=== PATIENT | male | born 1950 | race Caucasian/White ===

== ENCOUNTER → 2017-05-06 | Outpatient (CLI) | payer BC ==
--- NOTE | 2017-05-06 17:56 | PCVCIMAG ---
APPROVED REPORT Exam: Stress Echocardiogram Indication: CAD s/p PCI Patient Location: Echo lab Stress Nurse: Robyn Russell RN Room #: 2 Status: routine Ht: 5 ft 11 in HR: 71 bpm BP: 102/52 mmHg Rhythm: Bradycardia Medical History Medical History: CAD s/p stent Cardiac Risk Factors: HTN, Hyperlipidemia Previous Cardiac Procedures: PCI Pretest Chest Pain Characteristics: No chest pain Exercise History: Physically active Procedure The patient underwent an Exercise Stress Test using the Dequan Protocol. Blood pressure, heart rate, and EKG were monitored. An Echocardiogram was performed by technician plant and maintenance in four stages in quad fashion. At peak stress, four selected images were obtained and placed side by side with resting images for comparison. Stress Test Details Stress Test: Exercise stress testing was performed using a Dequan protocol. HR Resting HR: 71 bpmMax Heart Rate (APMHR): 152 bpm Max HR Achieved: 160 bpmTarget HR (85% APMHR): 129 bpm % of APMHR: 105 Recovery HR: 92 bpm HR response to stress: Normal HR response to stress BP Resting BP: 102/52 mmHg Max BP: 148/68 mmHg Recovery BP: 116/78 mmHg ECG Resting ECG: Sinus Bradycardia Stress ECG: Sinus Rhythm ST Change: Non-ischemic, Upsloping ST depression Arrhythmia: Rare PVCs and couplet PVCs Recovery ECG: Sinus Rhythm, normal EKG Recovery ST Change: Non-ischemic Recovery Arrhythmia: None Clinical Reason for Termination: Maximal effort Stress Symptoms: none Exercise duration: 10 min sec Highest Stage Achieved: Stage 4: 4.2 mph at 16% grade. Exercise capacity: 13.4 METs Overall Exercise Capacity for Age: Good Angina Score: None Stress ECG Conclusion The patient exercised according to the Dequan Protocol for 10:00 minutes, achieving a maximum work level of 13.4 METS. The resting heart rate of 71 bpm, stacie to a maximal level of160 bpm. This value represents 105 % of the maximal, age-predicted heart rate. The resting blood pressure of 102/52 mmHg, stacie to a maximum blood pressure of 148/68 mmHg. The exercise was stopped due to fatigue. Pre-Stress Echo The resting Echocardiogram showed normal left ventricular contractility with an estimated Ejection Fraction of about 55-60%. Normal wall motion in all segments on baseline images. Post-Stress Echo The stress Echocardiogram showed normal left ventricular contractility with an estimated Ejection Fraction of about 65-70%. Normal augmentation of wall motion in all segments on post stress images. Clinical No clinical or ECG evidence for ischemia. Conclusion Clinical Response: Non-ischemic Exercise Capacity: Superior Stress ECG Response: Non-ischemic Stress Echo Images: Non-ischemic No clinical, EKG or echocardiographic evidence for ischemia. No echocardiographic evidence for exercise induced ischemia. Normal stress echocardiogram with maximal exercise stress. <Conclusion> No clinical, EKG or echocardiographic evidence for ischemia. No echocardiographic evidence for exercise induced ischemia. Normal stress echocardiogram with maximal exercise stress.
== END | disposition home or self-care (01) ==
LOC: PCVCIMAG 11:04
PROVIDERS: ATTEND Internal Medicine Cardiovascular Disease
DX: I25.10 Atherosclerotic heart disease of native coronary artery without angina pectoris (principal); I10 Essential (primary) hypertension; R07.89 Other chest pain; Z95.5 Presence of coronary angioplasty implant and graft
CPT/HCPCS: 93325; 93351

== ENCOUNTER → 2018-01-27 | Outpatient (CLI) | payer MEDICARE, OTHER | END | disposition home or self-care (01) | LOC: PCVCCLINIC 10:29 | PROVIDERS: ATTEND Internal Medicine Cardiovascular Disease | DX: I25.10 Atherosclerotic heart disease of native coronary artery without angina pectoris (principal); I10 Essential (primary) hypertension; E78.00 Pure hypercholesterolemia, unspecified; K21.9 Gastro-esophageal reflux disease without esophagitis; R94.31 Abnormal electrocardiogram [ECG] [EKG]; Z79.82 Long term (current) use of aspirin; Z79.899 Other long term (current) drug therapy | CPT/HCPCS: 80061; 93005; G0463 ==

== ENCOUNTER → 2018-01-27 | Outpatient (CLI) | payer MEDICARE, OTHER | END | disposition home or self-care (01) | LOC: PCVCCLINIC 13:51 | PROVIDERS: ATTEND Internal Medicine Cardiovascular Disease | DX: I25.10 Atherosclerotic heart disease of native coronary artery without angina pectoris (principal); I10 Essential (primary) hypertension; E78.00 Pure hypercholesterolemia, unspecified; K21.9 Gastro-esophageal reflux disease without esophagitis; Z79.82 Long term (current) use of aspirin | CPT/HCPCS: 80061; 93005; G0463 ==

== ENCOUNTER → 2018-09-20 | Outpatient (CLI) | payer OTHER ==
--- NOTE | 2018-09-20 11:41 | PCVCIMAG ---
APPROVED REPORT Study performed: 09/20/2018 10:12:20 Exam: Stress Echocardiogram Indication: CAD , Hyperlipidemia, Hypertension Patient Location: Echo lab Stress Nurse: Elba Christianson RN Status: routine Ht: 5 ft 10 in HR: 62 bpm BP: 110/80 mmHg Rhythm: NSR Medical History Medical History: CAD s/p stent Procedure The patient underwent an Exercise Stress Test using the Dequan Protocol. Blood pressure, heart rate, and EKG were monitored. An Echocardiogram was performed by camera repair technician in four stages in quad fashion. At peak stress, four selected images were obtained and placed side by side with resting images for comparison. Stress Test Details Stress Test: Exercise stress testing was performed using a Dequan protocol. HR Resting HR: 62 bpmMax Heart Rate (APMHR): 151 bpm Max HR Achieved: 155 bpmTarget HR (85% APMHR): 128 bpm % of APMHR: 102 Recovery HR: 82 bpm HR response to stress: Normal HR response to stress BP Resting BP: 110/80 mmHg Max BP: 184/80 mmHg Recovery BP: 156/76 mmHg BP response to stress: Normal blood pressure response to stress. ECG Resting ECG: Sinus Rhythm Stress ECG: Sinus Rhythm Arrhythmia: VPC's Recovery ECG: Sinus Rhythm Clinical Reason for Termination: Maximal effort Exercise duration: 10 min sec Highest Stage Achieved: Stage 4: 4.2 mph at 16% grade. Exercise capacity: 13.40 METs Overall Exercise Capacity for Age: Normal Pre-Stress Echo The resting Echocardiogram showed normal left ventricular contractility with an estimated Ejection Fraction of about 55-60%. Normal wall motion in all segments on baseline images. Post-Stress Echo The stress Echocardiogram showed normal left ventricular contractility with an estimated Ejection Fraction of about 60-65%. Normal augmentation of wall motion in all segments on post stress images. Clinical No clinical or ECG evidence for ischemia. Conclusion Clinical Response: Non-ischemic Exercise Capacity: Average Stress ECG Response: Non-ischemic Stress Echo Images: Non-ischemic The left ventricle is normal in size and wall thickness in both the rest and stress images. Other Information Study Quality: Adequate <Conclusion> The left ventricle is normal in size and wall thickness in both the rest and stress images.
== END | disposition home or self-care (01) ==
LOC: PCVCIMAG 10:10
PROVIDERS: ATTEND Internal Medicine Cardiovascular Disease
DX: Z02.89 Encounter for other administrative examinations (principal); I25.10 Atherosclerotic heart disease of native coronary artery without angina pectoris; I10 Essential (primary) hypertension; E78.5 Hyperlipidemia, unspecified; E78.00 Pure hypercholesterolemia, unspecified; K21.9 Gastro-esophageal reflux disease without esophagitis; Z79.82 Long term (current) use of aspirin
CPT/HCPCS: 93325; 93351; G0463

== ENCOUNTER → 2019-04-28 | Outpatient (CLI) | payer MEDICARE, OTHER ==
--- NOTE | 2019-04-28 12:53 | PCVCIMAG ---
EXAM: BILATERAL CAROTID DUPLEX INDICATION: Carotid Occlusive Disease. FINDINGS: Doppler Measurements (centimeters per second): RIGHT: Peak CCA-78, Peak ECA-60, Diastolic ICA-10, Peak ICA-49, ICA/CCA Ratio-0.6. LEFT: Peak CCA-59, Peak ECA-54, Diastolic ICA-22, Peak ICA-54, ICA/CCA Ratio-0.9. RIGHT CAROTID: The carotid bulb has mild plaque. The proximal internal carotid artery shows <40% stenosis. The common carotid artery shows no significant stenosis. The external carotid artery shows no significant stenosis. LEFT CAROTID: The carotid bulb has mild plaque. The proximal internal carotid artery shows <40% stenosis. The common carotid artery shows no significant stenosis. The external carotid artery shows no significant stenosis. Antegrade flow in both vertebral arteries. IMPRESSION: <40% stenosis of the right internal carotid artery with mild plaque. <40% stenosis of the left internal carotid artery with mild plaque. LOC:[place] [id number]
== END | disposition home or self-care (01) ==
LOC: PCVCIMAG 12:04
PROVIDERS: ATTEND Internal Medicine Cardiovascular Disease
DX: I65.23 Occlusion and stenosis of bilateral carotid arteries (principal); E78.00 Pure hypercholesterolemia, unspecified; R93.1 Abnormal findings on diagnostic imaging of heart and coronary circulation; I10 Essential (primary) hypertension; I25.10 Atherosclerotic heart disease of native coronary artery without angina pectoris; K21.9 Gastro-esophageal reflux disease without esophagitis; Z95.5 Presence of coronary angioplasty implant and graft; Z79.82 Long term (current) use of aspirin; Z79.899 Other long term (current) drug therapy
CPT/HCPCS: 36415; 80061; 93005; 93880; G0463